=== PATIENT | female | born 1975 | race Caucasian/White ===

== ENCOUNTER 2017-03-11 13:39 | Emergency (ER) | payer MEDICAID ==
[~2017-03-11] VITALS: Ht 147.3 cm; Wt 130.5 kg
[~2017-03-11 13:39] MED LIST: ALBU8.5H3 IH; LORA10CA PO; NAPR-260 PO; PRED20TA PO
[2017-03-11 13:49] VITALS: Ht 147.3 cm; Wt 130.5 kg
[2017-03-11] MEDS ORDERED: LIDOCAINE 1% (MDV) 20 ML INJ SC ONE (14:00)
[2017-03-11] MEDS ORDERED: SULF1TAB31 PO (14:52)
[2017-03-11] MEDS ORDERED: CEPH-443 PO (14:52)
[2017-03-11] MEDS ORDERED: IBUP800T25 PO (14:52)
--- NOTE | 2017-03-11 14:58 | ERD ---
ER Documentation Chief Complaint Date/Time DATE: 03/11/17 TIME: 14:53 Chief Complaint ABSCESS ON BUTTOCKS PAINFUL, DRAINING HPI 41-year-old female complaining of painful area on her posterior right thigh 3 days. Patient noticed drainage of pus and blood 2 days ago. Denies injury. Denies fever or chills. ROS All systems reviewed and are negative except as per history of present illness. Medications Home Meds Active Scripts Sulfamethoxazole/Trimethoprim* (Bactrim Ds* Tablet) 1 Each Tablet, 1 TAB PO BID for 7 Days, #14 TAB Prov:YENNI FRANCE. NIGHT PATROL INSPECTOR 03/11/17 Cephalexin* (Keflex*) 500 Mg Capsule, 500 MG PO QID for 7 Days, CAP Prov:YENNI FRANCE. NIGHT PATROL INSPECTOR 03/11/17 Ibuprofen* (Motrin*) 800 Mg Tab, 800 MG PO Q8 Y for PAIN AND OR ELEVATED TEMP, # 30 TAB Prov:YENNI FRANCE. NIGHT PATROL INSPECTOR 03/11/17 Naproxen* (Naprosyn*) 500 Mg Tablet, 500 MG PO BID Y for PAIN AND/OR INFLAMMATION, #30 TAB Prov:PALOMA ROBERSON PA-C 06/03/15 Prednisone* (Prednisone*) 20 Mg Tab, 40 MG PO DAILY for 4 Days, TAB Prov:PALOMA ROBERSON PA-C 06/03/15 Reported Medications Albuterol Sulfate* (Proair HFA*) 8.5 Gm Hfa.aer.ad, 8.5 GM IH as needed 09/13/13 Loratadine* (Claritin*) 10 Mg Capsule, 10 MG PO DAILY 06/29/13 Allergies Allergies: Coded Allergies: acetaminophen (Verified Allergy, Unknown, ANAPHALACTIC, 03/11/17) hydrocodone (Verified Allergy, Unknown, ANAPHALACTIC, 03/11/17) PMhx/Soc History of Surgery: Yes (, FOOT SURGERY, TUBALIGATION) Anesthesia Reaction: No Hx Neurological Disorder: No Hx Respiratory Disorders: Yes (ASTHMA) Hx Cardiac Disorders: No Hx Psychiatric Problems: No Hx Miscellaneous Medical Probl: Yes (ANEMIA, GAL STONES) Hx Alcohol Use: No Hx Substance Use: No Hx Tobacco Use: No Smoking Status: Never smoker Physical Exam Vitals Vital Signs Date Time Temp Pulse Resp B/P Pulse Ox O2 Delivery O2 Flow Rate FiO2 03/11/17 13:49 99.4 118 20 163/93 96 Physical Exam General: Well-developed, well-nourished, conscious and coherent, in no distress Skin: Warm and dry without rash, good texture and turgor. A 10 cm area of erythema and induration on the proximal posterior thigh of the right leg, approximately 1 cm area of open wound is central to the induration. Head: Normocephalic without evidence of trauma Eyes: Sclera and conjunctivae normal; pupils equal, round, and reactive to light; extraocular movements are intact Neck: Supple without meningismus or adenopathy. Carotids are equal. Trachea midline. No bruits or JVD Chest: Normal AP diameter. Good expansion without retractions. Nontender. Lungs are clear to auscultate bilaterally with good tidal volume Heart: Regular rate and rhythm. No murmur, rub, or gallops heard Extremities: Full range of motion. Good strength bilaterally. No clubbing, cyanosis, or edema. Peripheral pulses are intact. Sensation intact Neuro: Alert and oriented 4, GCS 15. Cranial nerves grossly intact. Motor and sensory exams nonfocal. Moves all extremities. Speech clear. Gait normal Results 24 hrs Current Medications Medications (Trade) Dose Ordered Sig/Aris Route PRN Reason Start Time Stop Time Status Last Admin Dose Admin Lidocaine (Xylocaine 1% (Mdv) 20 ml) 20 ml ONCE ONCE SC 03/11/17 14:00 03/11/17 14:01 DC Procedures/MDM Procedure note: Incision and Drainage Verbal consent obtained for incision and drainage of patient's abscess. The area was prepped with Betadine. Lidocaine 1% was infiltrated for local anesthesia. After appropriate anesthesia, incision was made using #11 blade. Moderate amount of purulent discharge was drained from the abscess. The abscess was probed for loculation. Iodoform 1/4" packing tape was inserted into the abscess. The wound was then cleaned and dressed. Patient tolerated procedure well. Well-appearing, obese 41-year-old female presented ED with abscess of the posterior right thigh. No sign of necrotizing fasciitis or osteomyelitis. I doubt DVT. Patient appears well, stable for discharge and outpatient management. Medical decision making shared with patient and family. Education provided to patient and family. Patient and family expressed understanding of the plan. Medications on discharge: Ibuprofen, Keflex, Bactrim DS. Follow-up: Return to eating 2 days for wound check. Departure Diagnosis: Primary Impression: Abscess Condition: Stable Patient Instructions: Abscess, Incision And Drainage Referrals: [facility] YOU HAVE RECEIVED A MEDICAL SCREENING EXAM AND THE RESULTS INDICATE THAT YOU DO NOT HAVE A CONDITION THAT REQUIRES URGENT TREATMENT IN THE EMERGENCY DEPARTMENT. FURTHER EVALUATION AND TREATMENT OF YOUR CONDITION CAN WAIT UNTIL YOU ARE SEEN IN YOUR DOCTORS OFFICE WITHIN THE NEXT 1-2 DAYS. IT IS YOUR RESPONSIBILITY TO MAKE AN APPOINTMENT FOR FOLOW-UP CARE. IF YOU HAVE A PRIMARY DOCTOR --you should call your primary doctor and schedule an appointment IF YOU DO NOT HAVE A PRIMARY DOCTOR YOU CAN CALL OUR PHYSICIAN REFERRAL HOTLINE AT IF YOU CAN NOT AFFORD TO SEE A PHYSICIAN YOU CAN CHOSE FROM THE FOLLOWING [facility] [address] [facility] [address] [facility] [address] [facility] [address] [facility] [address] [facility]. [facility] [address] Additional Instructions: Return to this facility in 2 DAYS for a follow-up exam.Return sooner if your condition worsens. YENNI FRANCE NP Mar 11, 2017 14:58
== END 2017-03-11 15:00 | disposition home or self-care (01) ==
LOC: FTE 13:39
DX: L02.415 Cutaneous abscess of right lower limb (principal); J45.909 Unspecified asthma, uncomplicated
CPT/HCPCS: 10061; Z7502; Z7610

== ENCOUNTER 2017-06-17 09:59 | Emergency (ER) | payer SELFPAY ==
[~2017-06-17] VITALS: Ht 152.4 cm; Wt 90.0 kg
[~2017-06-17 09:59] MED LIST changes: +CEPH-443 PO; +IBUP800T25 PO; +SULF1TAB31 PO
[2017-06-17 10:02] VITALS: Ht 152.4 cm; Wt 90.0 kg
[2017-06-17] MEDS ORDERED: IBUPROFEN 800 MG TAB PO ONE (11:00)
[2017-06-17] MEDS ORDERED: IBUP-1542 PO (11:06)
[2017-06-17] MEDS ORDERED: SULF1TAB31 PO (11:06)
[2017-06-17] MEDS ORDERED: CEPH-443 PO (11:06)
--- NOTE | 2017-06-17 11:13 | ERD ---
ER Documentation Chief Complaint Date/Time DATE: 06/17/17 TIME: 11:08 Chief Complaint right buttocks abcess HPI This is a 41-year-old female who presents emergency department today for an abscess on her buttocks that she noticed 2 days ago. States that the area is draining. States she has had an abscess on her leg in the past. States that the area has gotten smaller since she put some warm compresses on it. Denies any fevers or chills. ROS All systems reviewed and are negative except as per history of present illness. Medications Home Meds Active Scripts Cephalexin* (Keflex*) 500 Mg Capsule, 500 MG PO QID for 7 Days, CAP Prov:ALINE GOLDMAN PA-C 06/17/17 Sulfamethoxazole/Trimethoprim* (Bactrim Ds* Tablet) 1 Each Tablet, 1 TAB PO BID for 7 Days, #14 TAB Prov:ALINE GOLDMANC 06/17/17 Ibuprofen* (Motrin*) 600 Mg Tab, 600 MG PO Q6, #30 TAB Prov:ALINE GOLDMAN PA-C 06/17/17 Sulfamethoxazole/Trimethoprim* (Bactrim Ds* Tablet) 1 Each Tablet, 1 TAB PO BID for 7 Days, #14 TAB Prov:YENNI FRANCE NP 03/11/17 Cephalexin* (Keflex*) 500 Mg Capsule, 500 MG PO QID for 7 Days, CAP Prov:YENNI FRANCE. ASSOCIATE EMBALMER/FUNERAL DIRECTOR 03/11/17 Ibuprofen* (Motrin*) 800 Mg Tab, 800 MG PO Q8 Y for PAIN AND OR ELEVATED TEMP, # 30 TAB Prov:YENNI FRANCE NP 03/11/17 Naproxen* (Naprosyn*) 500 Mg Tablet, 500 MG PO BID Y for PAIN AND/OR INFLAMMATION, #30 TAB Prov:PALOMA ROBERSON PA-C 06/03/15 Prednisone* (Prednisone*) 20 Mg Tab, 40 MG PO DAILY for 4 Days, TAB Prov:PALOMA ROBERSON PA-C 06/03/15 Reported Medications Albuterol Sulfate* (Proair HFA*) 8.5 Gm Hfa.aer.ad, 8.5 GM IH as needed 09/13/13 Loratadine* (Claritin*) 10 Mg Capsule, 10 MG PO DAILY 06/29/13 Allergies Allergies: Coded Allergies: acetaminophen (Verified Allergy, Unknown, ANAPHALACTIC, 03/11/17) hydrocodone (Verified Allergy, Unknown, ANAPHALACTIC, 03/11/17) PMhx/Soc History of Surgery: Yes (, FOOT SURGERY, TUBALIGATION) Anesthesia Reaction: No Hx Neurological Disorder: No Hx Respiratory Disorders: Yes (ASTHMA) Hx Cardiac Disorders: No Hx Psychiatric Problems: No Hx Miscellaneous Medical Probl: Yes (ANEMIA, GAL STONES) Hx Alcohol Use: No Hx Substance Use: No Hx Tobacco Use: No Smoking Status: Never smoker Physical Exam Vitals Vital Signs Date Time Temp Pulse Resp B/P Pulse Ox O2 Delivery O2 Flow Rate FiO2 06/17/17 10:02 98.1 87 18 140/78 99 Physical Exam Const: obese, NAD Head: Atraumatic Eyes: Normal Conjunctiva ENT: Normal External Ears, Nose and Mouth. Neck: Full range of motion..~ No meningismus. Resp: Clear to auscultation bilaterally Cardio: Regular rate and rhythm, no murmurs Abd: Soft, non tender, non distended. Normal bowel sounds Skin: Abscess right buttocks that is mildly draining with localized erythema, induration. Back: No midline or flank tenderness Ext: No cyanosis, or edema Neur: Awake and alert Psych: Normal Mood and Affect Results 24 hrs Current Medications Medications (Trade) Dose Ordered Sig/Aris Route PRN Reason Start Time Stop Time Status Last Admin Dose Admin Ibuprofen (Motrin) 800 mg ONCE ONCE PO 06/17/17 11:00 06/17/17 11:01 DC 06/17/17 10:47 Procedures/MDM This is a 41-year-old female who presents the emergency department today for an abscess on her right buttocks. Patient had evidence of a 1.5 cm abscess that was mildly draining. There was a significant amount of erythema and induration surrounding the area. Did offer to attempt to drain the area and I did explain the risks and benefits of the procedure however, she has declined incision and drainage at this time stating that she only wants antibiotics. I was able to apply some compression and express some purulent drainage. Symptoms at this time most consistent with buttocks abscess and localized cellulitis. Patient is afebrile at this time. Patient was given Motrin here in the emergency department. She is given a prescription for home. She was also given a prescription for Bactrim and Keflex and instructed to return in 48 hours for a wound check. She was instructed to sit in warm baths. At this time the patient is stable for discharge and outpatient management. Patient should follow up with their PCP in the next 1-2 days. They may return to the emergency department sooner for any persistent or worsening of symptoms. Patient understood and agreed with the plan. Departure Diagnosis: Primary Impression: Abscess Condition: Fair Patient Instructions: Abscess, Antiobiotic Treatment Only Referrals: [facility] YOU HAVE RECEIVED A MEDICAL SCREENING EXAM AND THE RESULTS INDICATE THAT YOU DO NOT HAVE A CONDITION THAT REQUIRES URGENT TREATMENT IN THE EMERGENCY DEPARTMENT. FURTHER EVALUATION AND TREATMENT OF YOUR CONDITION CAN WAIT UNTIL YOU ARE SEEN IN YOUR DOCTORS OFFICE WITHIN THE NEXT 1-2 DAYS. IT IS YOUR RESPONSIBILITY TO MAKE AN APPOINTMENT FOR FOLOW-UP CARE. IF YOU HAVE A PRIMARY DOCTOR --you should call your primary doctor and schedule an appointment IF YOU DO NOT HAVE A PRIMARY DOCTOR YOU CAN CALL OUR PHYSICIAN REFERRAL HOTLINE AT IF YOU CAN NOT AFFORD TO SEE A PHYSICIAN YOU CAN CHOSE FROM THE FOLLOWING [facility] [address] [facility] [address] [facility]. [facility] [address] [facility] [address] [facility] [address] [facility]. [facility]. [address] Additional Instructions: Call your primary care doctor TOMORROW for an appointment during the next 1-2 days.See the doctor sooner or return here if your condition worsens before your appointment time. Wound check in 48 hours. Return for any worsening of symptoms or fevers. Take antibiotics as prescribed. Sit in warm baths. Take Motrin for pain ALINE GOLDMAN PA-C Jun 17, 2017 11:13
== END 2017-06-17 11:20 | disposition home or self-care (01) ==
LOC: FTE 09:59
DX: L02.31 Cutaneous abscess of buttock (principal); J45.909 Unspecified asthma, uncomplicated
CPT/HCPCS: 99284

== ENCOUNTER 2018-03-10 13:01 | Emergency (ER) | END 2018-03-10 16:04 | disposition home or self-care (01) ==